=== PATIENT | female | born 1965 | race African-American/Black ===

== ENCOUNTER 2024-01-12 10:45 | Observation (INO) ==
[2024-01-12 11:16] LABS: ABS Basophils 0.1 10^3/uL (0.0-0.1); ABS Eosinophils 0.1 10^3/uL (0.0-0.5); ABS Lymphocytes 2.4 10^3/uL (1.0-4.8); ABS Monocytes 0.5 10^3/uL (0.0-0.9); ABS Neutrophils 6.2 10^3/uL (1.5-7.6); Eosinophil % 0.6 %; Hematocrit 39.9 % (35-45); Hemoglobin 13.5 g/dL (11.5-14.3); Lymphocyte % 26.1 %; Mean Corpuscular Hemoglobin 25.9 pg (27-33); Mean Corpuscular Hgb Conc 33.8 g/dL (31-36); Mean Corpuscular Volume 76.6 fL (80-97); Mean Platelet Volume 8.8 fL (7.5-11.2); Platelet Count 284 10^3/uL (150-450); Red Blood Count 5.21 10^6/uL (3.63-4.92); Red Cell Distribution Width 16.1 % (12-17); White Blood Count 9.2 10^3/uL (3.8-11.8)
[2024-01-12 11:23] LABS: INR 1.04 (0.83-1.13)
[2024-01-12 12:07] LABS: Albumin 4.4 g/dL (3.2-5.2); Albumin/Globulin Ratio 1.4 (1-3); Calcium 10.2 mg/dL (8.6-10.3); Creatinine, Serum 0.61 mg/dL (0.51-0.95); Globulin 3.2 g/dL (2-4); Phosphorus 3.4 mg/dL (2.5-5.0); Potassium 3.9 mmol/L (3.5-5.0); Total Bilirubin 0.6 mg/dL (0.2-1.0); Total Protein 7.6 g/dL (6.4-8.9); eGFR CKD-EPI 103.6 (>60)
[2024-01-12 12:41] LABS: High Sensitivity Troponin 1 Hr 45 pg/mL (<15)
[2024-01-12 13:05] LABS: HIV 4th Generation Nonreactive (Nonreactive)
[2024-01-12] MEDS: Lactated Ringers 1000 ml BAG 250 ML IV ONE (13:06)
[2024-01-12 13:13] LABS: Hepatitis C Antibody Negative (Negative)
[2024-01-12 13:24] LABS: Urine Appearance Turbid; Urine Bilirubin Negative (Negative); Urine Blood Negative (Negative); Urine Color Light-Yellow; Urine Glucose Negative (Negative); Urine Ketones Negative (Negative); Urine Nitrite Negative (Negative); Urine Protein Trace (Negative); Urine Specific Gravity 1.023 (1.002-1.030); Urine Urobilinogen Negative (Negative); Urine pH 6.5 (5.0-8.0)
[2024-01-12] MEDS ORDERED: Albuterol/Ipratropium NEB.SOL (2.5/0.5 MG) 3 ML NEB.SOLN INH PRN (15:08)
[2024-01-12] MEDS ORDERED: Albuterol 2.5mg/3 ml (0.083%) NEB.SOLN INH PRN (15:08)
[2024-01-12] MEDS: Furosemide 40 mg/4 ml IV VIAL IV SLOW PU ONE (16:07)
[2024-01-12] MEDS ORDERED: Acetaminop/Codeine 300mg/30mg TAB PO PRN (16:32)
[2024-01-12 17:08] LABS: TSH Ultra Thyroid Stim Horm 1.12 mcIU/mL (0.34-5.60)
[2024-01-12 17:41] LABS: Hematocrit 41.9 % (35-45); Hemoglobin 13.9 g/dL (11.5-14.3); Mean Corpuscular Hemoglobin 25.3 pg (27-33); Mean Corpuscular Hgb Conc 33.1 g/dL (31-36); Mean Corpuscular Volume 76.5 fL (80-97); Mean Platelet Volume 8.8 fL (7.5-11.2); Platelet Count 290 10^3/uL (150-450); Red Blood Count 5.48 10^6/uL (3.63-4.92); White Blood Count 9.2 10^3/uL (3.8-11.8)
[2024-01-12] MEDS: Heparin 5000 UNITS/ML 1 mL VIAL IV PRN (17:42)
[2024-01-12] MEDS: Heparin DRIP 25,000 UNITS BAG 25,000 UNITS/250 ML BAG IV SCH (17:44)
[2024-01-12 18:07] LABS: Creatinine, Serum 0.59 mg/dL (0.51-0.95); eGFR CKD-EPI 104.4 (>60)
[2024-01-12 18:14] LABS: ABS Basophils 0.1 10^3/uL (0.0-0.1); ABS Lymphocytes 2.2 10^3/uL (1.0-4.8); ABS Monocytes 0.4 10^3/uL (0.0-0.9); ABS Neutrophils 6.5 10^3/uL (1.5-7.6); ABS Nucleated RBC 0.01 10^3/ul; Anisocytosis 1+; Eosinophil % 0.4 %; Large Platelets Present; Lymphocyte % 24.1 %; Microcytosis 1+; Nucleated Red Blood Cells % 0.1 %/100WBC (0.0-0.8)
[2024-01-13 06:39] LABS: ABS Basophils 0.1 10^3/uL (0.0-0.1); ABS Monocytes 0.5 10^3/uL (0.0-0.9); ABS Neutrophils 6.8 10^3/uL (1.5-7.6); ABS Nucleated RBC 0.01 10^3/ul; Eosinophil % 0.3 %; Hematocrit 39.7 % (35-45); Hemoglobin 13.1 g/dL (11.5-14.3); Lymphocyte % 28.6 %; Mean Corpuscular Hemoglobin 25.2 pg (27-33); Mean Corpuscular Volume 76.4 fL (80-97); Mean Platelet Volume 8.8 fL (7.5-11.2); Nucleated Red Blood Cells % 0.1 %/100WBC (0.0-0.8); Platelet Count 271 10^3/uL (150-450); Red Cell Distribution Width 16.3 % (12-17); White Blood Count 10.5 10^3/uL (3.8-11.8)
[2024-01-13 06:59] LABS: Activated Partial Thrombo Time 158.3 seconds (26.0-38.0)
[2024-01-13 07:14] LABS: INR 1.2 (0.83-1.13)
[2024-01-13 08:57] LABS: Calcium 10.2 mg/dL (8.6-10.3); Creatinine, Serum 0.53 mg/dL (0.51-0.95); Potassium 3.8 mmol/L (3.5-5.0); eGFR CKD-EPI 107.1 (>60)
[2024-01-13] MEDS ORDERED: Sulfur Hexaflouride MICROSPHR 25 MG VIAL ONE (10:56)
[2024-01-13] MEDS: Potassium Chlor 20 meq TAB.ER PO ONE (14:44)
[2024-01-13 15:14] LABS: Ferritin 233.4 ng/mL (11-307)
[2024-01-13] MEDS: Potassium Chloride LIQUID 20 MEQ/15 ML LIQUID PO SCH (20:36)
[2024-01-14 06:20] LABS: Hematocrit 36.7 % (35-45); Hemoglobin 12.1 g/dL (11.5-14.3); Mean Corpuscular Hemoglobin 25.5 pg (27-33); Mean Corpuscular Hgb Conc 33.1 g/dL (31-36); Mean Corpuscular Volume 76.9 fL (80-97); Mean Platelet Volume 8.8 fL (7.5-11.2); Platelet Count 239 10^3/uL (150-450); Red Blood Count 4.77 10^6/uL (3.63-4.92); Red Cell Distribution Width 16.2 % (12-17); White Blood Count 8.2 10^3/uL (3.8-11.8)
[2024-01-14 06:38] LABS: Calcium 9.6 mg/dL (8.6-10.3); Creatinine, Serum 0.53 mg/dL (0.51-0.95); Potassium 3.8 mmol/L (3.5-5.0); eGFR CKD-EPI 107.1 (>60)
[2024-01-14 10:06] VITALS: BP 143/96
== END 2024-01-14 12:21 | disposition home or self-care (01) ==
LOC: ED 10:45 → EDHOLD 10:45 → SUATTDRO 14:15 → MEDTELE 15:51
PROVIDERS: ADMIT Internal Medicine; ATTEND Internal Medicine